=== PATIENT | female | born 1970 | race Caucasian/White ===

== ENCOUNTER 2018-12-13 13:49 | Emergency (ER) | payer OTHER ==
[2018-12-13 14:00] VITALS: RESP 18; TEMP 97.1
[2018-12-13] MEDS ORDERED: Sodium Chloride 0.9% 1,000 ML IV STA ×2 (14:50→15:13)
--- NOTE | 2018-12-13 15:01 | ED PDOC ---
HPI: Abdomen Time Seen by Provider: 12/13/18 14:39 Chief Complaint (Nursing): Abdominal Pain Chief Complaint (Provider): flank and abdominal pain History Per: Patient (Bilateral flank pain started on Thursday but resolved spontaneously, recurred on Thursday and persistent since then and now associated with LLQ and LUQ pain and nausea) Onset/Duration Of Symptoms: Days (7), Persistent (3 days) Location Of Pain/Discomfort: LUQ, LLQ Quality Of Discomfort: Aching, "Pain" Associated Symptoms: Nausea, Back Pain, Other (recent antibiotics for tooth infection 2 weeks ago). denies: Fever, Chills, Vomiting, Diarrhea, Loss Of Appetite, Chest Pain, Constipation, Urinary Symptoms Exacerbating Factors: None, Other (sleeping on LEFT side) Alleviating Factors: None Last Bowel Movement: Today Additional Complaint(s): PMD: None Past Medical History Reviewed: Historical Data, Nursing Documentation, Vital Signs Vital Signs: Last Vital Signs Temp 97.1 F L 12/13/18 14:00 Pulse 98 H 12/13/18 14:00 Resp 18 12/13/18 14:00 BP 135/75 12/13/18 14:00 Pulse Ox 97 12/13/18 14:00 - Medical History PMH: No Chronic Diseases Other PMH: Was told that she had elevated blood sugar but never started meds - Surgical History Surgical History: (x4) Other surgeries: Tubal ligation - Family History Family History: States: Unknown Family Hx - Social History Current smoker - smoking cessation education provided: No Alcohol: None Drugs: Denies - Immunization History Hx Tetanus Toxoid Vaccination: No Hx Influenza Vaccination: No Hx Pneumococcal Vaccination: No - Home Medications Home Medications: Ambulatory Orders Medication Instructions Recorded Dicyclomine [Bentyl] 20 mg PO QID PRN #20 tab 12/13/18 Metformin HCl [Glucophage] 1 tab PO BID #60 tablet 12/13/18 Naproxen [Naprosyn] 1 tab PO BID PRN #25 tab 12/13/18 - Allergies Allergies/Adverse Reactions: Allergies Allergy/AdvReac Type Severity Reaction Status Date / Time No Known Allergies Allergy Verified 04/29/16 13:48 Review of Systems ROS Statement: Except As Marked, All Systems Reviewed And Found Negative (and as per HPI) Gastrointestinal: Positive for: Nausea, Abdominal Pain. Negative for: Vomiting, Diarrhea, Constipation, Melena, Hematochezia Genitourinary Female: Negative for: Dysuria, Frequency, Hematuria, Vaginal Discharge, Vaginal Bleeding, Pelvic Pain Musculoskeletal: Positive for: Back Pain Physical Exam - Reviewed Nursing Documentation Reviewed: Yes Vital Signs Reviewed: Yes - Physical Exam Appears: Positive for: Non-toxic, No Acute Distress Head Exam: Positive for: ATRAUMATIC, NORMOCEPHALIC Skin: Positive for: Warm Eye Exam: Positive for: EOMI, PERRL ENT: Positive for: Pharynx Is (clear with dry mucus membranes) Neck: Positive for: Painless ROM, Supple Cardiovascular/Chest: Positive for: Regular Rate, Rhythm. Negative for: Murmur Respiratory: Positive for: Normal Breath Sounds. Negative for: Respiratory Distress Gastrointestinal/Abdominal: Positive for: Bowel Sounds, Soft, Tenderness (LLQ>LUQ). Negative for: Organomegaly, Mass, Distended, Guarding, Rebound, Other (mcburney's point tenderness or canales's sign) Back: Positive for: Normal Inspection. Negative for: L CVA Tenderness, R CVA Tenderness, Vertebral Tenderness, Decreased ROM, Muscle Spasm Extremity: Positive for: Normal ROM. Negative for: Deformity, Other (SLR test) Lymphatic: Negative for: Adenopathy Neurological/Psych: Positive for: Awake, Alert. Negative for: Motor/Sensory Deficits - Laboratory Results Result Diagrams: 12/13/18 15:40 12/13/18 15:40 - ECG O2 Sat by Pulse Oximetry: 97 Medical Decision Making Medical Decision Making: Impression: Back and abdominal pain Ddx include but not limited to diverticulitis, colitis, gastritis, pyelonephritis, abdominal mass. Labs demonstrate hyperglycemia, otherwise no clinically significant abnormalities. Accession No. : [id number] Patient Name / ID : VALENTE ZARATE / [id number] Exam Date : 12/13/2018 16:30:51 ( Approved ) Study Comment : Sex / Age : F / 48Y Creator : Maame Shah MD Dictator : Maame Shah MD Field Service Coordinator : Software Technician : Maame Shah MD Approver2 : Report Date : 12/13/2018 17:23:26 My Comment : Date of service: 12/13/2018 PROCEDURE: CT Abdomen and Pelvis with contrast HISTORY: LEFT sided abd pain LLQ>LUQ COMPARISON: None available. TECHNIQUE: Contrast dose: 95 mL Omnipaque 300 IV Radiation dose: Total exam DLP = 832.31 mGy-cm. This CT exam was performed using one or more of the following dose reduction techniques: Automated exposure control, adjustment of the mA and/or kV according to patient size, and/or use of iterative reconstruction technique. FINDINGS: LOWER THORAX: No visible consolidation, pleural effusion, or pneumothorax. LIVER: Hepatic steatosis. GALLBLADDER AND BILE DUCTS: Cholelithiasis. PANCREAS: Unremarkable. SPLEEN: Unremarkable. ADRENALS: Unremarkable. KIDNEYS AND URETERS: The kidneys enhance symmetrically. No hydronephrosis or obstructing calculus identified. VASCULATURE: No aortic aneurysm. No atherosclerotic calcification or mural plaque present. BOWEL: Stomach is nondistended. Lack of oral contrast limits evaluation for bowel pathology. Bowel loops appear within normal limits of caliber without evidence of obstruction. APPENDIX: The appendix appears within normal limits of caliber. No secondary signs of acute appendicitis. PERITONEUM: No significant free fluid. No definite free air. LYMPH NODES: No bulky adenopathy identified. Numerous small calcifications within the m esentery particularly in the left upper quadrant likely tiny calcified lymph nodes. BLADDER: Unremarkable. REPRODUCTIVE: Uterus is present. BONES: Degenerative changes. OTHER FINDINGS: 12 mm fat containing umbilical hernia. IMPRESSION: Hepatic steatosis. Cholelithiasis. Numerous small calcifications within the mesentery particularly in the left upper quadrant likely tiny calcified lymph nodes. Small fat containing umbilical hernia. Disposition - Clinical Impression Clinical Impression: Hyperglycemia, Cholelithiasis, Mesenteric adenitis, Abdominal pain Counseled Patient/Family Regarding: Studies Performed, Diagnosis, Need For Followup, Rx Given - Disposition Referrals: [facility] [Outside] ([facility] Disposition: Routine/Home Disposition Time: 18:08 Condition: STABLE Prescriptions: Dicyclomine [Bentyl] 20 mg PO QID PRN #20 tab PRN Reason: abdominal pain Metformin HCl [Glucophage] 1 tab PO BID #60 tablet Naproxen [Naprosyn] 1 tab PO BID PRN #25 tab PRN Reason: Pain Instructions: Acute Abdomen (Belly Pain), Gallstones (DC), Mesenteric Lymphadenitis (DC), Hyperglycemia, Adult (DC) Print Language: [place]
[2018-12-13 16:12] LABS: VENOUS BLOOD GAS BASE EXCESS 6.3 mmol/L (0.0-2.0); VENOUS BLOOD GAS PCO2 51 mmHg (40-60); VENOUS BLOOD GAS PO2 31 mm/Hg (30-55); VENOUS BLOOD PH 7.41 (7.32-7.43)
[2018-12-13 16:13] LABS: BASO # 0.1 K/uL (0.0-0.2); BASO % 0.8 % (0.0-2.0); EOS # 0.3 K/uL (0.0-0.7); EOS % 3.7 % (0.0-4.0); HEMOGLOBIN 15.2 g/dL (12.0-16.0); LYMPH # 2.1 K/uL (1.0-4.3); LYMPH % 29.2 % (20.0-40.0); MEAN CELL VOLUME 86.6 fl (81.0-99.0); MEAN CORPUSCULAR HEMOGLOBIN 29.4 pg (27.0-31.0); MEAN PLATELET VOLUME 8.4 fl (7.2-11.7); MONO # 0.4 K/uL (0.0-0.8); NEUT # 4.4 K/uL (1.8-7.0); NEUT % 60.3 % (50.0-75.0); RBC 5.17 Mil/uL (3.80-5.20); RED CELL DISTRIBUTION WIDTH 13.1 % (11.5-14.5); WHITE BLOOD COUNT 7.2 K/uL (4.8-10.8)
[2018-12-13 16:20] LABS: BLOOD UREA NITROGEN 19 mg/dl (7-17); CALCIUM 9.7 mg/dL (8.4-10.2); GFR NON-AFRICAN AMERICAN > 60; LIPASE 71 U/L (23-300)
[2018-12-13 16:27] LABS: ALBUMIN 4.7 g/dL (3.5-5.0); ALT/SGPT 30 U/L (9-52); AST/SGOT 46 U/L (14-36)
[2018-12-13] MEDS ORDERED: Iohexol 300 100 ML IJ ONE (16:29)
[2018-12-13] MEDS ORDERED: Sodium Chloride 0.9% 50 ML IV ONE (16:29)
--- NOTE | 2018-12-13 17:27 | CT ---
Date of service: 12/13/2018 PROCEDURE: CT Abdomen and Pelvis with contrast HISTORY: LEFT sided abd pain LLQ>LUQ COMPARISON: None available. TECHNIQUE: Contrast dose: 95 mL Omnipaque 300 IV Radiation dose: Total exam DLP = 832.31 mGy-cm. This CT exam was performed using one or more of the following dose reduction techniques: Automated exposure control, adjustment of the mA and/or kV according to patient size, and/or use of iterative reconstruction technique. FINDINGS: LOWER THORAX: No visible consolidation, pleural effusion, or pneumothorax. LIVER: Hepatic steatosis. GALLBLADDER AND BILE DUCTS: Cholelithiasis. PANCREAS: Unremarkable. SPLEEN: Unremarkable. ADRENALS: Unremarkable. KIDNEYS AND URETERS: The kidneys enhance symmetrically. No hydronephrosis or obstructing calculus identified. VASCULATURE: No aortic aneurysm. No atherosclerotic calcification or mural plaque present. BOWEL: Stomach is nondistended. Lack of oral contrast limits evaluation for bowel pathology. Bowel loops appear within normal limits of caliber without evidence of obstruction. APPENDIX: The appendix appears within normal limits of caliber. No secondary signs of acute appendicitis. PERITONEUM: No significant free fluid. No definite free air. LYMPH NODES: No bulky adenopathy identified. Numerous small calcifications within the mesentery particularly in the left upper quadrant likely tiny calcified lymph nodes. BLADDER: Unremarkable. REPRODUCTIVE: Uterus is present. BONES: Degenerative changes. OTHER FINDINGS: 12 mm fat containing umbilical hernia. IMPRESSION: Hepatic steatosis. Cholelithiasis. Numerous small calcifications within the mesentery particularly in the left upper quadrant likely tiny calcified lymph nodes. Small fat containing umbilical hernia.
[2018-12-13] MEDS ORDERED: Insulin Regular 100 units/ml SC STA (18:05)
[2018-12-13 19:00] VITALS: BP 130/70; PULSE 90; O2SAT 98
== END 2018-12-13 18:55 | disposition home or self-care (01) ==
LOC: H.ER 13:49
DX: R10.12 Left upper quadrant pain (principal); K80.20 Calculus of gallbladder without cholecystitis without obstruction; R73.9 Hyperglycemia, unspecified; I88.0 Nonspecific mesenteric lymphadenitis; K42.9 Umbilical hernia without obstruction or gangrene
CPT/HCPCS: 74177; 80053; 81025; 82803; 82948; 83690; 85025; 99284; J7030; Q9967